=== PATIENT | female | born 1955 | race Caucasian/White ===

== ENCOUNTER 2017-04-29 07:15 | Outpatient (CLI) | payer MEDICAID ==
--- NOTE | 2017-04-29 14:02 | Mammography Report ---
Bilateral mammogram and right breast ultrasound: Patient presents with palpable finding in the lateral right breast. A marker was placed over the lateral area. Routine views were obtained. Comparison is made to prior exams dating back to 2015. There is an intermediate fibroglandular pattern with a generally symmetric and unremarkable distribution. Scattered benign-appearing calcifications are present throughout both breasts. No finding is identified related to the right marker and there are no obvious nodules no areas of architectural distortion in either breast. The findings are generally unchanged compared to prior exams. CAD used. Global ultrasound of the right breast shows no abnormality in the palpable regions in the 1:00 and 10:00 locations. At 9:00 approximately 8 cm from the nipple there is a circumscribed slightly elongated 4.5 mm area of hyperdensity. The breast pattern is otherwise remarkable. Impression: 1. Stable benign mammogram. 2. No mammogram or significant ultrasound abnormality. Recommendation: Clinical followup. Any additional evaluation at this time should be based in your concern. Otherwise, annual mammogram followup. BI-RADS CATEGORY: 2 = Benign ACR BI-RADS MAMMOGRAPHIC CODES: 0 = Needs additional imaging evaluation; 1 = Negative; 2 = Benign; 3 = Probably benign; 4 = Suspicious; 5 = Malignant; 6 = Known biopsy-proven malignancy COMMENT: 1. Dense breast tissue, i.e., adenosis, fibrocystic changes, etc., may obscure an underlying neoplasm. 2. Approximately 10% of cancers are not detected with mammography. 3. A negative mammography report should not delay biopsy if a clinically suspicious mass is present.
== END 2017-04-29 07:16 | disposition home or self-care (01) ==
LOC: MAMMO 07:15
PROVIDERS: ATTEND Family Medicine
DX: R92.1 Mammographic calcification found on diagnostic imaging of breast (principal)
CPT/HCPCS: 77066

== ENCOUNTER 2017-05-25 15:08 | Outpatient (CLI) | payer MEDICAID ==
--- NOTE | 2017-05-26 08:19 | Magnetic Resonance Report ---
MRI OF THE BRAIN WITHOUT CONTRAST: HISTORY: Anosmia PROCEDURE: Multiplanar, multisequence MR imaging of the brain without IV contrast was performed. FINDINGS: The brain parenchyma signal intensity and its geller white interface are within normal limits on all sequences. No evidence for acute ischemia, hemorrhage or mass. No chronic infarct or extra-axial fluid collection. The midline structures are central. The basal cisterns are patent. Normal ventricular size. The orbital cavities and sella turcica demonstrate no abnormality. No severe mucosal thickening is present throughout both sphenoid sinuses and most of the bilateral ethmoid air cells. The cribriform plate region is unremarkable. The remaining sinuses and mastoid air cells are well aerated. IMPRESSION: Normal MRI of the brain parenchyma. Moderate to severe chronic-appearing ethmoid and sphenoid sinus disease.
== END 2017-05-25 15:09 | disposition home or self-care (01) ==
LOC: MRI 15:08
PROVIDERS: ATTEND Otolaryngology
DX: J32.2 Chronic ethmoidal sinusitis (principal); J32.3 Chronic sphenoidal sinusitis; R43.0 Anosmia
CPT/HCPCS: 70551

== ENCOUNTER 2018-05-02 08:54 | Outpatient (CLI) | payer MEDICAID ==
--- NOTE | 2018-05-02 12:08 | Mammography Report ---
Screening mammogram: The patient has had multiple bilateral surgeries with slight volume loss of the right breast. There is a heterogeneous pattern which is generally symmetric in distribution. Numerous benign-appearing calcifications are scattered throughout both breasts. No suspicious areas of architectural distortion and no masses are identified. There are no interval changes when compared to prior exams dating back to 2017. CAD used. Impression: Stable, benign breast pattern. Recommendation: Annual mammogram followup. BI-RADS CATEGORY: 1 = Negative ACR BI-RADS MAMMOGRAPHIC CODES: 0 = Needs additional imaging evaluation; 1 = Negative; 2 = Benign; 3 = Probably benign; 4 = Suspicious; 5 = Malignant; 6 = Known biopsy-proven malignancy COMMENT: 1. Dense breast tissue, i.e., adenosis, fibrocystic changes, etc., may obscure an underlying neoplasm. 2. Approximately 10% of cancers are not detected with mammography. 3. A negative mammography report should not delay biopsy if a clinically suspicious mass is present.
== END 2018-05-02 08:55 | disposition home or self-care (01) ==
LOC: MAMMO 08:54
PROVIDERS: ATTEND Family Medicine
DX: Z12.31 Encounter for screening mammogram for malignant neoplasm of breast (principal); I10 Essential (primary) hypertension; J45.909 Unspecified asthma, uncomplicated; K21.9 Gastro-esophageal reflux disease without esophagitis; E11.9 Type 2 diabetes mellitus without complications; Z90.710 Acquired absence of both cervix and uterus; Z90.721 Acquired absence of ovaries, unilateral
CPT/HCPCS: 77067

== ENCOUNTER 2018-12-12 12:32 | Outpatient (CLI) | payer MEDICAID ==
--- NOTE | 2018-12-14 12:08 | Magnetic Resonance Report ---
BILATERAL BREAST MR WITHOUT AND WITH GADOLINIUM INDICATION: Right breast pain and history of bilateral benign surgical excisions. COMPARISONS: 05/02/2018 screening mammogram TECHNIQUE: Axial 1.0 mm T1 without, axial high-resolution 2.0 mm T2 and axial 1.0 mm dynamic vibrant high-resolution postcontrast T1 fat saturation sequences on a 1.5 Maritza magnet. The examination was p erformed with an 8-channel dedicated [place] breast coil. Post-processing with CAD and subtraction was performed on an evidanza workstation. 16.0 cc of MultiHance was injected without incident for the c ontrast portion of the exam. Consent was obtained prior to the administration of the contrast. FINDINGS: RIGHT BREAST: The right breast is smaller than the left. Minimal background parenchymal enhancement. Mild subareolar benign scar with minimal enhancement. No mass or suspicious enhancement. No suspiciou s lymph nodes. LEFT BREAST: Minimal background parenchymal enhancement. No mass or suspicious enhancement. No suspic ious lymph nodes. IMPRESSION: 1. No suspicious finding in either breast. 2. Benign postsurgical changes in the right breast. 3. Recommend clinical follow-up and routine mammographic screening. BI-RADS Category 2: Benign Signer Name: Bj Wing MD Signed: 12/14/2018 12:03 PM Workstation Name: [id number]
== END 2018-12-12 12:33 | disposition home or self-care (01) ==
LOC: SPVIMAG 12:32
PROVIDERS: ATTEND Surgery
DX: N64.4 Mastodynia (principal); I10 Essential (primary) hypertension; J45.909 Unspecified asthma, uncomplicated; K21.9 Gastro-esophageal reflux disease without esophagitis; Z80.3 Family history of malignant neoplasm of breast; Z98.890 Other specified postprocedural states; Z90.710 Acquired absence of both cervix and uterus
CPT/HCPCS: A9577; C8908; 77049

== ENCOUNTER 2019-05-15 07:53 | Outpatient (CLI) | payer MEDICARE ==
--- NOTE | 2019-05-15 14:34 | Mammography Report ---
DIGITAL SCREENING MAMMOGRAM WITH CAD, 05/15/2019 INDICATION: Routine screening mammography. History of bilateral benign surgical excisions. TECHNIQUE: Digital bilateral 2D mammography was obtained in the craniocaudal and mediolateral obliq ue projections. This examination was interpreted with the benefit of Computer-Aided Detection analysi s. COMPARISON: 05/02/2018 FINDINGS: Breast Density: The breasts are heterogeneously dense, which may obscure small masses. There is no evidence of dominant mass, suspicious calcifications or architectural distortion in eithe r breast. The right breast is slightly smaller than the left. Scattered bilateral benign calcificatio ns. IMPRESSION: No mammographic evidence of malignancy. Follow up recommendation: Routine yearly BI-RADS Category 2: Benign. A "normal" or negative report should not discourage follow up or biopsy of a clinically significant f inding. A written summary of these findings will be mailed to the patient. The patient will be entered into a mammography reporting system which will generate a reminder letter for the patient's next appointmen t at the appropriate interval. The [employer] recommends yearly mammograms starting at age 40 and continuing as l kayla as a woman is in good health. Breast MRI is recommended for women with an approximate 20-25% or greater lifetime risk of breast cancer, including women with a strong family history of breast or ova mingo cancer or who have been treated for Hodgkin's disease. Signer Name: Bj Wing MD Signed: 05/15/2019 2:29 PM Workstation Name: [id number]
== END 2019-05-15 07:54 | disposition home or self-care (01) ==
LOC: MAMMO 07:53
DX: Z12.31 Encounter for screening mammogram for malignant neoplasm of breast (principal)
CPT/HCPCS: 77067

== ENCOUNTER 2020-05-17 08:56 | Outpatient (CLI) | payer MEDICARE ==
--- NOTE | 2020-05-17 13:51 | Mammography Report ---
DIGITAL SCREENING MAMMOGRAM WITH CAD, 05/17/2020 CLINICAL INFORMATION / INDICATION: Routine screening mammography. TECHNIQUE: Digital bilateral 2D mammography was obtained in the craniocaudal and mediolateral obliqu e projections. This examination was interpreted with the benefit of Computer-Aided Detection analysis . COMPARISON: 05/15/2019, 05/02/2018 FINDINGS: Breast Density: There are scattered areas of fibroglandular density. No dominant mass, suspicious calcifications, or architectural distortion in either breast. There are stable bilateral calcifications. Postsurgical scar is noted in the right breast. IMPRESSION: No mammographic evidence of malignancy. Follow up recommendation: Routine yearly BI-RADS Category 2: Benign. A "normal" or negative report should not discourage follow up or biopsy of a clinically significant f inding. A written summary of these findings will be mailed to the patient. The patient will be entered into a mammography reporting system which will generate a reminder letter for the patient's next appointmen t at the appropriate interval. The [employer] recommends yearly mammograms starting at age 40 and continuing as l kayla as a woman is in good health. Breast MRI is recommended for women with an approximate 20-25% or greater lifetime risk of breast cancer, including women with a strong family history of breast or ova mingo cancer or who have been treated for Hodgkin's disease. Signer Name: aCs Urena MD Signed: 05/17/2020 1:46 PM Workstation Name: [id number]
== END 2020-05-17 08:57 | disposition home or self-care (01) ==
LOC: MAMMO 08:56
PROVIDERS: ATTEND Plastic Surgery
DX: Z12.31 Encounter for screening mammogram for malignant neoplasm of breast (principal)
CPT/HCPCS: 77067

== ENCOUNTER 2020-07-30 10:47 | Emergency (ER) | payer MEDICARE ==
--- NOTE | 2020-07-30 11:23 | Cat Scan Report ---
CT head/brain wo con INDICATION: MAIN. TECHNIQUE: Routine CT head without contrast. All CT scans at this location are performed using CT dos e reduction for ALARA by means of automated exposure control. COMPARISON: Brain MRI on 05/25/2017 FINDINGS: BRAIN / INTRACRANIAL CONTENTS: No acute hemorrhage, mass effect, midline shift, or hydrocephalus. No appreciable acute large territorial or lacunar infarct. No chronic infarct or focal atrophy. Normal b rain volume and ventricular/sulcal size for age. ORBITS: No significant abnormality of visualized orbits. SINUSES / MASTOIDS: Previous sinus surgery noted. No acute findings. ADDITIONAL FINDINGS: None. IMPRESSION: 1. No acute intracranial abnormality. Signer Name: Bernardino Stanton MD Signed: 07/30/2020 11:19 AM Workstation Name: [id number]
[2020-07-30] MEDS ORDERED: ONDANSETRON 4 MG/2 ML INJ IV ONE (11:30)
[2020-07-30] MEDS ORDERED: ONDANSETRON 4 MG/2 ML INJ ONE (11:31)
[2020-07-30] MEDS ORDERED: ACETAMINOPHEN 325 MG TAB PO ONE (11:47)
[2020-07-30 11:55] LABS: Basophils % (Auto) 0.2 % (0.0-1.8); Eosinophils % (Auto) 0.2 % (0.0-4.3); Hematocrit 42.3 % (30.3-42.9); Hemoglobin 14.8 gm/dl (10.1-14.3); Lymphocytes # (Auto) 0.8 K/mm3 (1.2-5.4); Lymphocytes % (Auto) 8.3 % (13.4-35.0); Mean Corpuscular HGB Conc 35 % (30-34); Mean Corpuscular Volume 93 fl (79-97); Monocytes # (Auto) 0.3 K/mm3 (0.0-0.8); Monocytes % (Auto) 2.6 % (0.0-7.3); Platelet Count 204 K/mm3 (140-440); Red Blood Count 4.55 M/mm3 (3.65-5.03); Red Cell Distribution Width 12.7 % (13.2-15.2)
[2020-07-30 12:04] LABS: INR 0.91 (0.87-1.13)
[2020-07-30 12:05] LABS: Partial Thromboplastin Time 24.7 Sec. (24.2-36.6); Thrombin Time 14.7 Sec. (15.1-19.6)
[2020-07-30 12:30] LABS: Alanine Aminotransferase 17 units/L (7-56); Albumin 4.4 g/dL (3.9-5); Blood Urea Nitrogen 13 mg/dL (7-17); Calcium 9.3 mg/dL (8.4-10.2); Hemolysis Index 28
--- NOTE | 2020-07-30 12:38 | Emergency Department Report ---
Blank Doc - Documentation Documentation: [facility] Consult Note # Demographics Consult Type: Acute Stroke Level 1 (0-4.5 hrs) Patient Location: Emergency Room First Name: Lisa Last Name: Henrietta Date of : 1955 Age: 65 Gender: Female Time of Initial Page (): 07/30/2020, 11:01 Time of Return Call ( Time): 07/30/2020, 11:01 # HPI History: 65yo F present wtih right sided flank pain, was being brought to the room and when she got off the stretcher had a blank stare. not very interactive, possibly left sided facial droop. examined pt after CT. she is sittng up and speakng after the CT, moving extrmeities equally. pt is complainign of a headache. # Scores Time of exam and NIHSS (): 07/30/2020, 11:18 Level of Consciousness 1a: [0] = Alert; keenly responsive LOC Questions 1b: [2] = Answers neither correctly LOC Commands 1c: [0] = Performs both tasks correctly Best Gaze 2: [0] = Normal Visual 3: [0] = No visual loss Facial Palsy 4: [0] = Normal symmetrical movements Motor Arm Left 5a: [0] = No drift Motor Arm Right 5b: [0] = No drift Motor Leg Left 6a: [0] = No drift Motor Leg Right 6b: [0] = No drift Limb Ataxia 7: [0] = Absent Sensory 8: [0] = Normal Best Language 9: [1] = Heze-ei-ullclyir aphasia Dysarthria 10: [0] = Normal Extinction and Inattention 11: [0] = No abnormality NIHSS Total: 3 # Data Time Head CT personally read by me (): 07/30/2020, 11:[address]: no bleed, preliminarily reviewed by me, please refer to radiology read for official reading # Assessment Impression: Altered Mental Status # Plan Thrombolytic/Intervention: NOT IV Thrombolytic or IA Intervention Thrombolytic/Intraarterial Exclusion: IV thrombolytic and IA intervention considered but not recommended as this patient's symptoms are not clinically consistent with an assumed diagnosis of stroke Other: I have discussed my recommendations with the referring provider Additional Recommendations: Metabolic and infectious evaluation. If no cause found then MRI brain for further eval is reasonable. # Logistics Telemedicine: Interactive 2 way audio and visual telecommunication technology was utilized during this visit
[2020-07-30 12:45] LABS: BUN/Creatinine Ratio 19
--- NOTE | 2020-07-30 13:33 | Emergency Department Report ---
ED General Adult HPI - General Chief complaint: Neuro Symptoms/Deficit Stated complaint: ABD/BACK PAIN/NAUSEA Time Seen by Provider: 07/30/20 11:07 Source: EMS Mode of arrival: Stretcher Limitations: Altered Mental Status - History of Present Illness Initial comments: Patient presents to the emergency department via EMS with chief complaint of right flank pain that radiates into her abdomen that started today. While the patient was on the stretcher with EMS she became unresponsive and stroke protocol was initiated. The. That the patient had mild left-sided facial droop but was able to move her extremities without issue. -: Sudden Severity scale (0 -10): 0 Improves with: none Worsens with: none Treatments Prior to Arrival: none - Related Data Home Medications Medication Instructions Recorded Confirmed Last Taken Albuterol Sulfate [Proventil HFA] 2 puff PO PRN PRN 05/11/13 08/03/13 08/03/13 2 PUFFS PHENobarbitaL [PHENobarbital] 30 mg PO TID 05/11/13 08/03/13 08/04/13 30 MG Previous Rx's Medication Instructions Recorded Last Taken Type levETIRAcetam [Keppra] 500 mg PO BID #60 tablet 06/20/14 Unknown Rx HYDROcodone/APAP 7.5-325 [[place] 1 each PO Q6HR PRN #15 tablet 07/30/20 Unknown Rx 7.5/325] Ibuprofen [Motrin] 800 mg PO Q8HR PRN #30 tablet 07/30/20 Unknown Rx Sulfamethoxazole/Trimethoprim 1 each PO BID #14 tablet 07/30/20 Unknown Rx [Bactrim DS TAB] Allergies Allergy/AdvReac Type Severity Reaction Status Date / Time No Known Allergies Allergy Verified 06/20/14 11:58 ED Review of Systems ROS: Stated complaint: ABD/BACK PAIN/NAUSEA Other details as noted in HPI Comment: All other systems reviewed and negative Constitutional: denies: chills, fever Eyes: denies: eye pain, eye discharge, vision change ENT: denies: ear pain, throat pain Respiratory: denies: cough, shortness of breath, wheezing Cardiovascular: denies: chest pain, palpitations Endocrine: no symptoms reported Gastrointestinal: other (Flank pain). denies: abdominal pain, nausea, diarrhea Genitourinary: denies: urgency, dysuria, discharge Musculoskeletal: denies: back pain, joint swelling, arthralgia Skin: denies: rash, lesions Neurological: denies: headache, weakness, paresthesias Psychiatric: denies: anxiety, depression Hematological/Lymphatic: denies: easy bleeding, easy bruising ED Past Medical Hx - Past Medical History Hx Hypertension: Yes (DOES NOT TAKE MEDICATION AT THIS TIME) Hx Diabetes: Yes ("HAD DIABETES FOR 3-4 MONTHS" NO MEDICATION) Hx GERD: Yes Hx Liver Disease: (HEPATIC CYSTS) Hx Renal Disease: No Hx Seizures: Yes (LAST SZ 4 MOS AGO) Hx Asthma: Yes (PRN ALBUTEROL INHALER USE) Additional medical history: Pituitary tumor that was removed - Surgical History Hx Breast Surgery: Yes (BR BX R/X7;L/X2 LAST BR BX 2011) Additional Surgical History: hemorrhoid repair once before when she was 16 and again last month. Pituitary tumor removed and a hysterectomy - Social History Smoking Status: Unknown if ever smoked - Medications Home Medications: Home Medications Medication Instructions Recorded Confirmed Last Taken Type Albuterol Sulfate [Proventil HFA] 2 puff PO PRN PRN 05/11/13 08/03/13 08/03/13 History 2 PUFFS PHENobarbitaL [PHENobarbital] 30 mg PO TID 05/11/13 08/03/13 08/04/13 History 30 MG levETIRAcetam [Keppra] 500 mg PO BID #60 tablet 06/20/14 Unknown Rx HYDROcodone/APAP 7.5-325 [[place] 1 each PO Q6HR PRN #15 tablet 07/30/20 Unknown Rx 7.5/325] Ibuprofen [Motrin] 800 mg PO Q8HR PRN #30 tablet 07/30/20 Unknown Rx Sulfamethoxazole/Trimethoprim 1 each PO BID #14 tablet 07/30/20 Unknown Rx [Bactrim DS TAB] ED Physical Exam - General Limitations: Altered Mental Status General appearance: alert, in no apparent distress - Head Head exam: Present: atraumatic, normocephalic - Eye Eye exam: Present: normal appearance - ENT ENT exam: Present: mucous membranes moist - Neck Neck exam: Present: normal inspection - Respiratory Respiratory exam: Present: normal lung sounds bilaterally. Absent: respiratory distress - Cardiovascular Cardiovascular Exam: Present: regular rate, normal rhythm. Absent: systolic m urmur, diastolic murmur, rubs, gallop - GI/Abdominal GI/Abdominal exam: Present: soft, normal bowel sounds. Absent: distended, tenderness - Extremities Exam Extremities exam: Present: normal inspection - Back Exam Back exam: Present: normal inspection - Neurological Exam Neurological exam: Present: alert, oriented X3, CN II-XII intact. Absent: motor sensory deficit - Psychiatric Psychiatric exam: Present: normal affect, normal mood - Skin Skin exam: Present: warm, dry, intact, normal color. Absent: rash - Other Other exam information: Physical exam was done on the patient prior to her becoming unresponsive ED Course Vital Signs 07/30/20 07/30/20 07/30/20 11:24 11:27 11:30 Temperature 97.8 F Pulse Rate 69 63 66 Respiratory 12 18 14 Rate Blood Pressure 180/73 180/73 Blood Pressure [Left] O2 Sat by Pulse 99 99 98 Oximetry 07/30/20 07/30/20 07/30/20 11:33 11:37 12:00 Temperature Pulse Rate 71 61 Respiratory 12 16 Rate Blood Pressure Blood Pressure 148/82 [Left] O2 Sat by Pulse 0 L 98 Oximetry 07/30/20 07/30/20 13:00 15:00 Temperature Pulse Rate 59 L 55 L Respiratory 11 L 15 Rate Blood Pressure Blood Pressure 162/84 134/93 [Left] O2 Sat by Pulse 100 100 Oximetry ED Medical Decision Making - Lab Data Result diagrams: 07/30/20 11:34 07/30/20 11:34 Lab Results 07/30/20 07/30/20 07/30/20 Range/Units 10:59 11:34 11:34 WBC 10.1 (4.5-11.0) K/mm3 RBC 4.55 (3.65-5.03) M/mm3 Hgb 14.8 H (10.1-14.3) gm/dl Hct 42.3 (30.3-42.9) % MCV 93 (79-97) fl MCH 33 H (28-32) pg MCHC 35 H (30-34) % RDW 12.7 L (13.2-15.2) % Plt Count 204 (140-440) K/mm3 Lymph % (Auto) 8.3 L (13.4-35.0) % [place] % (Auto) 2.6 (0.0-7.3) % Eos % (Auto) 0.2 (0.0-4.3) % Baso % (Auto) 0.2 (0.0-1.8) % Lymph # (Auto) 0.8 L (1.2-5.4) K/mm3 [place] # (Auto) 0.3 (0.0-0.8) K/mm3 Eos # (Auto) 0.0 (0.0-0.4) K/mm3 Baso # (Auto) 0.0 (0.0-0.1) K/mm3 Seg Neutrophils % 88.7 H (40.0-70.0) % Seg Neutrophils # 9.0 H (1.8-7.7) K/mm3 PT 12.2 (12.2-14.9) Sec. INR 0.91 (0.87-1.13) APTT 24.7 (24.2-36.6) Sec. Thrombin Time 14.7 L (15.1-19.6) Sec. Sodium (137-145) mmol/L Potassium (3.6-5.0) mmol/L Chloride (98-107) mmol/L Carbon Dioxide (22-30) mmol/L Anion Gap mmol/L BUN (7-17) mg/dL Creatinine (0.6-1.2) mg/dL Estimated GFR ml/min BUN/Creatinine Ratio % Glucose (65-100) mg/dL POC Glucose 95 (70-105) mg/dL Calcium (8.4-10.2) mg/dL Total Bilirubin (0.1-1.2) mg/dL AST (5-40) units/L ALT (7-56) units/L Alkaline Phosphatase (35-129) units/L Total Creatine Kinase (30-135) units/L CK-MB (CK-2) (0.0-4.0) ng/mL CK-MB (CK-2) Rel Index (0-4) Troponin T (0.00-0.029) ng/mL Total Protein (6.3-8.2) g/dL Albumin (3.9-5) g/dL Albumin/Globulin Ratio % Urine Color (Yellow) Urine Turbidity (Clear) Urine pH (5.0-7.0) Ur Specific [place] (1.003-1.030) Urine Protein (Negative) mg/dL Urine Glucose (UA) (Negative) mg/dL Urine Ketones (Negative) mg/dL Urine Blood (Negative) Urine Nitrite (Negative) Urine Bilirubin (Negative) Urine Urobilinogen (<2.0) mg/dL Ur Leukocyte Esterase (Negative) Urine WBC (Auto) (0.0-6.0) /HPF Urine RBC (Auto) (0.0-6.0) /HPF U Epithel Cells (Auto) (0-13.0) /HPF Urine Mucus /HPF Urine Yeast (Budding) /HPF Plasma/Serum Alcohol (0-0.07) % 07/30/20 07/30/20 07/30/20 Range/Units 11:34 11:34 12:47 WBC (4.5-11.0) K/mm3 RBC (3.65-5.03) M/mm3 Hgb (10.1-14.3) gm/dl Hct (30.3-42.9) % MCV (79-97) fl MCH (28-32) pg MCHC (30-34) % RDW (13.2-15.2) % Plt Count (140-440) K/mm3 Lymph % (Auto) (13.4-35.0) % [place] % (Auto) (0.0-7.3) % Eos % (Auto) (0.0-4.3) % Baso % (Auto) (0.0-1.8) % Lymph # (Auto) (1.2-5.4) K/mm3 [place] # (Auto) (0.0-0.8) K/mm3 Eos # (Auto) (0.0-0.4) K/mm3 Baso # (Auto) (0.0-0.1) K/mm3 Seg Neutrophils % (40.0-70.0) % Seg Neutrophils # (1.8-7.7) K/mm3 PT (12.2-14.9) Sec. INR (0.87-1.13) APTT (24.2-36.6) Sec. Thrombin Time (15.1-19.6) Sec. Sodium 138 (137-145) mmol/L Potassium 4.3 (3.6-5.0) mmol/L Chloride 105.9 (98-107) mmol/L Carbon Dioxide 20 L (22-30) mmol/L Anion Gap 16 mmol/L BUN 13 (7-17) mg/dL Creatinine 0.7 (0.6-1.2) mg/dL Estimated GFR > 60 ml/min BUN/Creatinine Ratio 19 % Glucose 113 H (65-100) mg/dL POC Glucose (70-105) mg/dL Calcium 9.3 (8.4-10.2) mg/dL Total Bilirubin 0.50 (0.1-1.2) mg/dL AST 20 (5-40) units/L ALT 17 (7-56) units/L Alkaline Phosphatase 77 (35-129) units/L Total Creatine Kinase 66 (30-135) units/L CK-MB (CK-2) 1.4 (0.0-4.0) ng/mL CK-MB (CK-2) Rel Index 2.1 (0-4) Troponin T < 0.010 (0.00-0.029) ng/mL Total Protein 7.5 (6.3-8.2) g/dL Albumin 4.4 (3.9-5) g/dL Albumin/Globulin Ratio 1.4 % Urine Color Yellow (Yellow) Urine Turbidity Cloudy (Clear) Urine pH 5.0 (5.0-7.0) Ur Specific [place] 1.013 (1.003-1.030) Urine Protein 30 mg/dl (Negative) mg/dL Urine Glucose (UA) Neg (Negative) mg/dL Urine Ketones Neg (Negative) mg/dL Urine Blood Lg (Negative) Urine Nitrite Neg (Negative) Urine Bilirubin Neg (Negative) Urine Urobilinogen < 2.0 (<2.0) mg/dL Ur Leukocyte Esterase Neg (Negative) Urine WBC (Auto) 13.0 H (0.0-6.0) /HPF Urine RBC (Auto) 85.0 (0.0-6.0) /HPF U Epithel Cells (Auto) 1.0 (0-13.0) /HPF Urine Mucus 2+ /HPF Urine Yeast (Budding) Few /HPF Plasma/Serum Alcohol < 0.01 (0-0.07) % - Radiology Data Radiology results: report reviewed - Medical Decision Making Stroke protocol initiated due to the patient having left-sided facial droop and being unresponsive CT of the head did not show an acute event Upon the patient returning from CAT scan and neurological evaluation via telemedicine the patient speaking in full sentences with slight confusion and moving all extremities without issue CTA of the head and neck were ordered per request of neurology Review of the imaging shows no acute occlusion On reevaluation of the patient at 3:15 PM she tells me that she has a history of seizures which was not known to us previously and that she had not taken her seizure medication 3 days because she received the Covid shot. Patient can answer all questions without issue and her NIH score now is 0 Patient states she used to have grand mal seizures but after having brain surgery she now has episodic/staring seizures which was actually patient's presentation upon initial stroke protocol. The patient was staring out into space and could not move her arms during the episode but appeared to have slight facial droop thus the reason for the stroke protocol being initiated. Now after learning of the history of the patient having seizures her presentation was consistent with that Patient does complain of a headache which she states is normal after seizures Patient will be discharged home I did discuss the imaging of the CT abdomen with the patient which shows stone of the ureter Critical care attestation.: If time is entered above; I have spent that time in minutes in the direct care of this critically ill patient, excluding procedure time. ED Disposition Clinical Impression: Seizure, Ureter, calculus, Asymptomatic bacteriuria Disposition: DC-01 TO HOME OR SELFCARE Is pt being admited?: No Does the pt Need Aspirin: No Condition: Stable Instructions: Seizure, Adult, Asymptomatic Bacteriuria, Kidney Stones Additional Instructions: Please take your seizure medications as discussed Please return if symptoms become worse Referrals: PRIMARY CARE, [Primary Care Provider] - 3-5 Days Time of Disposition: 15:55 - Assessment Assessment Interval: Baseline - Level of Consciousness 1a. Level of Consciousness: alert/keenly responsive - LOC Questions 1b. LOC Questions: answers no questions correctly - LOC Command 1c. LOC Commands: performs tasks correctly - Best Gaze 2. Best Gaze: normal - Visual 3. Visual: no visual loss - Facial Palsy 4. Facial Palsy: normal symmetrical movement - Motor Arm 5a. Motor Arm Left: no drift 5b. Motor Arm Right: no drift - Motor Leg 6a. Motor Leg Left: no drift 6b. Motor Leg Right: no drift - Limb Ataxia 7. Limb Ataxia: absent - Sensory 8. Sensory: normal - Best Language 9. Best Language: mild/moderate aphasia - Dysarthria 10. Dysarthria: normal - Extinction and Inattention 11. Extinction/Inattention: no abnormality - Scoring Total Score: 3 Stroke Severity: Minor Stroke
[2020-07-30 13:35] LABS: Bilirubin,Urine NEG (Negative); Blood,Urine LG (Negative); Color,Urine Yellow (Yellow); Mucus,Urine 2+ /HPF; Urobilinogen,Urine < 2.0 mg/dL (<2.0)
--- NOTE | 2020-07-30 14:18 | Cat Scan Report ---
CT ABDOMEN AND PELVIS WITHOUT CONTRAST INDICATION / CLINICAL INFORMATION: flank pain. TECHNIQUE: Axial CT images were obtained through the abdomen and pelvis without IV contrast. Sagittal and cortes l reformatted images. All CT scans at this location are performed using CT dose reduction for ALARA b y means of automated exposure control. COMPARISON: 11/15/2015 FINDINGS: LOWER CHEST: No significant abnormality. LIVER: No significant abnormality. Few scattered liver cysts are unchanged with the largest measuring 2 cm in the left hepatic lobe. GALLBLADDER: No significant abnormality. BILE DUCTS: No significant abnormality. PANCREAS: No significant abnormality. SPLEEN: No significant abnormality. ADRENALS: No significant abnormality. RIGHT KIDNEY and URETER: A 4.6 mm calculus is identified in the proximal right ureter with mild upstr eam right hydronephrosis. A punctate calyceal stone is also noted in the mid right kidney. No focal r ight renal lesion. LEFT KIDNEY and URETER: No significant abnormality. STOMACH and SMALL BOWEL: No significant abnormality. COLON: Minimal sigmoid diverticulosis. No obstruction or inflammation. APPENDIX: No significant abnormality. PERITONEUM: No free fluid. No free air. No fluid collection. LYMPH NODES: No significant adenopathy. AORTA and ARTERIES: No significant abnormality. IVC and VEINS: No significant abnormality. URINARY BLADDER: No significant abnormality. REPRODUCTIVE ORGANS: Hysterectomy. The ovaries are not clearly visualized. The vaginal cuff is unrema rkable. ADDITIONAL FINDINGS: None. SKELETAL SYSTEM: No significant abnormality. IMPRESSION: 4.6 mm proximal right ureteral stone with mild right hydronephrosis. Punctate right renal stone. Minimal sigmoid diverticulosis. Scattered small liver cysts, stable. Total hysterectomy. Signer Name: Jose Art Jr, MD Signed: 07/30/2020 2:14 PM Workstation Name: [id number]
--- NOTE | 2020-07-30 14:28 | Cat Scan Report ---
. CT angio neck, CT angio head HISTORY: Stroke. Facial droop COMPARISON: None. TECHNIQUE: CTA of the neck and head is performed after IV contrast. 3-D/MIP reformats were postproces sed. Percentage stenosis is determined by direct quantitative measurements of diseased internal [place] artery diameter compared with normal distal internal carotid artery reference segments or by crit eria similar to NASCET where applicable. All CT scans at this location are performed using CT dose re duction for ALARA by means of automated exposure control. FINDINGS: CTA NECK: Aortic arch: No significant abnormality. Cervical vertebral arteries: No occlusion or hemodynamically significant stenosis. Common Carotid arteries: No occlusion or hemodynamically significant stenosis. Internal carotid arteries: No occlusion or hemodynamically significant stenosis. CTA HEAD: Intracranial internal carotid arteries: No occlusion or significant stenosis. Anterior cerebral arteries: No occlusion or significant stenosis. Middle cerebral arteries: No occlusion or significant stenosis. Intracranial vertebral arteries: No occlusion or significant stenosis. Basilar artery: No occlusion or significant stenosis. Posterior cerebral arteries: No occlusion or significant stenosis. No aneurysm. Additional findings: None. IMPRESSION: 1. CTA NECK: No occlusion or significant stenosis of the carotid or vertebral arteries. 2. CTA HEAD: No occlusion or significant stenosis of the major intracranial vasculature. Signer Name: Taras Christie MD Signed: 07/30/2020 2:23 PM Workstation Name: [id number]
[2020-07-30 15:37] LABS: Creatine Kinase MB 1.4 ng/mL (0.0-4.0)
[2020-07-30] MEDS ORDERED: HYDROcodone/ACETAMINOPHEN 5-325 MG TAB PO ONE (15:42)
[2020-07-30] MEDS ORDERED: SULFAMETHOXAZOLE/TRIMETHOPRIM 800/160MG DS TAB PO ONE (15:42)
[2020-07-30] MEDS ORDERED: ONDANSETRON 4 MG ODT TAB PO ONE (15:42)
[2020-07-30] MEDS ORDERED: levETIRAcetam 500 MG TAB PO ONE (15:42)
[2020-07-30 16:02] VITALS: BP 137/77
== END 2020-07-30 16:32 | disposition home or self-care (01) ==
LOC: ED 10:47
DX: G40.909 Epilepsy, unspecified, not intractable, without status epilepticus (principal); N20.1 Calculus of ureter; R82.71 Bacteriuria; I10 Essential (primary) hypertension; E11.9 Type 2 diabetes mellitus without complications; K21.9 Gastro-esophageal reflux disease without esophagitis; M19.90 Unspecified osteoarthritis, unspecified site; J45.909 Unspecified asthma, uncomplicated; Z79.899 Other long term (current) drug therapy
CPT/HCPCS: 36415; 70450; 70496; 70498; 74176; 80053; 81001; 82550; 82553; 82962; 84484; 85025; 85610; 85670; 85730; 87086; 96374; 99285; J2405; Q9967; 80320; G0480; Q0162